=== PATIENT | female | born 2000 | race American Indian/Alaskan Native ===

== ENCOUNTER 2019-01-03 23:55 | Inpatient (IN) | payer BC, MEDICAID ==
[2019-01-04] MEDS ORDERED: XYLOCAINE 2% INFILTRATI ONE (03:46)
[2019-01-04] MEDS ORDERED: BRETHINE IVP PRN (03:46)
[2019-01-04] MEDS ORDERED: SUBLIMAZE IV PRN (03:46)
[2019-01-04] MEDS ORDERED: BRETHINE SUB-Q PRN (03:46)
[2019-01-04] MEDS ORDERED: MINERAL OIL PO PRN (03:46)
[2019-01-04] MEDS ORDERED: PITOCin/NS 20 UNIT/1000ML DRIP 20 UNITS/1,000 ML BAG IV SCH (04:00)
[2019-01-04] MEDS ORDERED: PITOCin/NS 30 UNIT/500ML 30 UNITS/500 ML BAG IV SCH (04:00)
[2019-01-04 04:22] LABS: Hemoglobin 11.8 gm/dl (10.1-14.3); Mean Corpuscular HGB Conc 34 % (30-34); Mean Corpuscular Volume 92 fl (79-97); Platelet Count 130 K/mm3 (140-440); Red Blood Count 3.81 M/mm3 (3.65-5.03); Red Cell Distribution Width 14.5 % (13.2-15.2)
[2019-01-04 04:44] LABS: Alanine Aminotransferase 12 units/L (7-56)
[2019-01-04 05:07] LABS: Uric Acid 3.6 mg/dL (3.5-7.6)
--- NOTE | 2019-01-04 07:03 | History and Physical Report ---
History of Present Illness Date of examination: 01/04/19 Date of admission: 01/04/19 04:59 Chief complaint: my water broke History of present illness: Pt presents with SROM @ 2300. Pt admitted for IOL. GBS negative. Fliud reported as clear and clear on admission. EDC Calculations By LMP: 01/13/2019 from LMP date: 04/08/2018 + 280 days LMP: 01/13/2019 EDC Confirmation: 01/13/2019 Gestational Age: 34 5/7 weeks Past History : 1 Term Births: 0 Premature Births: 0 Living Children: 0 Para: 0 Mult. Births: 0 Prev : 0 Prev. attempt? 0 Aborta: 0 Elect. Ab: 0 Spont. Ab: 0 Ectopics: 0 Risk Factors: Smoked Tobacco Use: Never smoker Smokeless Tobacco Use: Never Passive smoke exposure: no Drug use: no HIV high-risk behavior: low risk Alcohol use: no Past Medical History: Reviewed history from 12/06/2018 and no changes required: rh negative - rhogam 10/24/18 Past Surgical History: negative Past Medical History Anesthesia Complications: negative Anemia: negative Autoimmune Disorder: negative Bleeding Disorder: negative Blood Transfusions: negative Breast Disease: negative Diabetes: negative Heart Disease: negative Hypertension: negative Hepatitis/Liver Disease: negative Kidney Disease/UTI: negative Neurologic/Epilepsy/Migraines: negative Phlebitis/Varicosities: negative Psychiatric: negative Pulmonary Disease/Asthma: negative Thyroid Disease: negative Hospitalizations: negative Surgery (Non-wool hat finisher): negative Abnormal PAP: negative HERNESTO Exposure: negative Infertility: negative Uterine Anomaly: negative Uterine Surgery (not C/S): negative Other Gynecologic Problems: negative Social Hx: Single Employed no smoking Infection History Hx of STD: none HIV Risk Eval: low risk Hepatitis B Risk Eval: low risk Personal hx. of genital herpes: no Partner hx. of genital herpes: no Rash, Viral, or Febrile illness since last LMP? no Varicella/Chicken Pox Status: Immunized TB Risk: no Genetic History Congenital Heart Defect: Mom: no Dad: no Ange Disease: Mom: no Dad: no Thalassemia Mom: no Dad: no Neural Tube Defect Mom: no Dad: no Down's Syndrome Mom: no Dad: no Gaurav-Sachs Mom: no Dad: no Sickle Cell Disease/Trait Mom: no Dad: no Hemophilia Mom: no Dad: no Muscular Dystrophy Mom: no Dad: no Cystic Fibrosis Mom: no Dad: no Onset Chorea Mom: no Dad: no Mental Retardation Mom: no Dad: no Fragile X Mom: no Dad: no Other Genetic/Chromosomal Disorder Mom: no Dad: no Child w/other defect Mom: no Dad: no Enviromental Exposures Xray Exposure: no Medication, drug, or alcohol use since LMP: no Chemical/Other Exposure: no Exposure to Cat Liter: no Hx of Parvovirus (Fifth Disease): no Occupational Exposure to Children: none Active Medications (reviewed today): FLINTSTONE VITAMINS () Current Allergies: No known allergies Past History Past Medical History: no pertinent history Past Surgical History: no surgical history Social history: no significant social history, single - Obstetrical History Expected Date of Delivery: 01/13/19 Actual Gestation: 38 Week(s) 5 Day(s) : 1 Medications and Allergies Allergies Allergy/AdvReac Type Severity Reaction Status Date / Time No Known Allergies Allergy Verified 01/04/19 03:34 Active Meds: Active Medications Ephedrine Sulfate (Ephedrine Sulfate) 10 mg IV Q2M PRN PRN Reason: Hypotension Fentanyl (Sublimaze) 100 mcg IV Q2H PRN PRN Reason: Labor Pain Oxytocin/Sodium Chloride (Pitocin/Ns 20 Unit/1000ml Drip) 20 units in 1,000 mls @ 125 mls/hr IV DIRECT DENIS Oxytocin/Sodium Chloride (Pitocin/Ns 30 Unit/500ml) 30 units in 500 mls @ 2 mls/hr IV TITR DENIS; Protocol Lactated Ringer's (Lactated Ringers) 1,000 mls @ 125 mls/hr IV DIRECT DENIS Mineral Oil (Mineral Oil) 30 ml PO QHS PRN PRN Reason: Constipation Terbutaline Sulfate (Brethine) 0.25 mg SUB-Q ONCE PRN PRN Reason: Hyperstimulation/Hypertonicity Terbutaline Sulfate (Brethine) 0.25 mg IVP ONCE PRN PRN Reason: Hyperstimulation/Hypertonicity Review of Systems All systems: negative - Vital Signs Vital signs: Vital Signs Pulse BP 72 143/88 01/04/19 01:27 01/04/19 01:27 Temp Pulse Resp BP Pulse Ox 98.6 F 75 20 134/79 01/04/19 05:07 01/04/19 06:35 01/04/19 05:07 01/04/19 06:35 - Physical Exam Lungs: Positive: Normal air movement Abdomen: Positive: normal appearance, soft. Negative: distention, tenderness, guarding Genitourinary (Female): Positive: other (deferred as pt already examined by RN) Deep Tendon Reflex Grade: Normal +2 - Obstetrical FHR: category 1 Results Result Diagrams: 01/04/19 04:00 01/04/19 04:00 Abnormal lab results 01/04/19 01/04/19 Range/Units 04:00 04:00 Plt Count 130 L (140-440) K/mm3 Creatinine 0.6 L (0.7-1.2) mg/dL Lactate Dehydrogenase 344 H (91-180) units/L All other labs normal. Assessment and Plan - Patient Problems (1) 38 weeks gestation of Current Visit: Yes Status: Acute (2) SROM (spontaneous rupture of membranes) Current Visit: Yes Status: Acute Plan to address problem: -admit -IOL -anticipate -Serial IOL in the back drop of SROM and risk of infection, failed IOL and need for c/s also d/w pt and questions were addressed and answered. (3) Elevated blood pressure affecting in third trimester, antepartum Current Visit: Yes Status: Acute Plan to address problem: -PIH labs negative -cont to closely monitor -Gest HTN for now as UA is pending and not sure if pt has protein in urine or not.Will hold MgSO4 at this time.
[2019-01-04 07:15] LABS: Bacteria,Urine 1+ /HPF (Negative); Bilirubin,Urine NEG (Negative); Blood,Urine LG (Negative); Color,Urine Yellow (Yellow); Mucus,Urine 3+ /HPF; Urobilinogen,Urine < 2.0 mg/dL (<2.0)
--- NOTE | 2019-01-04 08:51 | Progress Note ---
Assessment and Plan 33 y.o. IUP at 27w3d admitted for 24 hour urine collection and c/o severe swelling and leg pain. Patient resting in bed, reports "feeling much better, the swelling has gone down since I got here". No edema noted to face or hands/upper extremeties. 2+ pitting edema to LEs bilaterally. Patient denies any other complaints at this time- no LEHMAN, visual disturbances, RUQ pain, vaginal bleeding, LOF, contractions, no chest pain or difficulty breathing. She reports that she occasionally has difficulty breathing when lying down. VSSAF. Reviewed POC with pt- Echo and LE doppler ordered. NST q shift as ordered- RN aware to perform. Will continue collection of 24 hour urine and monitor results of ordered tests as well as BPs. Pt instructed to notify RN of any changes in assessment, needs, or complaints. Subjective - Subjective Date of service: 01/04/19 Patient reports: movement normal, no new complaints, no loss of fluid, no vaginal bleeding, no contractions Objective - Vital Signs Vital Signs: Vital Signs - 12hr 01/04/19 01/04/19 01/04/19 01:27 01:58 02:28 Temperature Pulse Rate 72 77 81 Respiratory Rate Blood Pressure 143/88 135/87 126/79 01/04/19 01/04/19 01/04/19 03:27 03:28 05:07 Temperature 98.4 F 98.6 F Pulse Rate 93 H Respiratory 20 Rate Blood Pressure 138/91 01/04/19 01/04/19 01/04/19 06:04 06:35 07:05 Temperature Pulse Rate 72 75 71 Respiratory Rate Blood Pressure 140/82 134/79 129/90 01/04/19 01/04/19 07:34 08:39 Temperature Pulse Rate 81 71 Respiratory Rate Blood Pressure 127/84 130/65 - Exam Cardiovascular: Regular rate, Normal S1, Normal S2 Lungs: Clear to auscultation, Normal air movement Abdomen: Present: normal appearance, soft, normal bowel sounds. Absent: distention, tenderness Uterus: Present: normal Uterine Tone Measurement Phase: Resting (soft, no contractions palpated) Extremities: edema (2+ pitting edema bilateral LEs) Deep Tendon Reflex Grade: Normal +2 - Labs Labs: Abnormal Labs 01/04/19 01/04/19 01/04/19 04:00 04:00 Unknown Plt Count 130 L Creatinine 0.6 L Lactate Dehydrogenase 344 H Urine WBC (Auto) 18.0 H U Epithel Cells (Auto) 23.0 H Laboratory Results - last 24 hr 01/04/19 01/04/19 01/04/19 04:00 04:00 Unknown WBC 7.4 RBC 3.81 Hgb 11.8 Hct 35.0 MCV 92 MCH 31 MCHC 34 RDW 14.5 Plt Count 130 L Creatinine 0.6 L Estimated GFR > 60 Uric Acid 3.6 AST 30 ALT 12 Lactate Dehydrogenase 344 H Urine Color Yellow Urine Turbidity Cloudy Urine pH 7.0 Ur Specific [place] 1.010 Urine Protein 30 mg/dl Urine Glucose (UA) Neg Urine Ketones Neg Urine Blood Lg Urine Nitrite Neg Urine Bilirubin Neg Urine Urobilinogen < 2.0 Ur Leukocyte Esterase Tr Urine WBC (Auto) 18.0 H Urine RBC (Auto) 41.0 U Epithel Cells (Auto) 23.0 H Urine Bacteria (Auto) 1+ Urine Mucus 3+
--- NOTE | 2019-01-04 09:02 | Progress Note ---
Assessment and Plan 18 y/o IUP at 38w5d admitted for SROM at 2300, clear. Pt reports continued LOC, remains clear. She reports feeling irregular contractions, palpate mild. SVE 2/60/-2, IUPC placed without difficulty with patient's permission- risks and benefits reviewed prior to placement. [facility] plans for pitocin augmentation, will increase pitocin 4x4 q30 per protocol, RN aware. Patient desires epidural for pain management. Offered IV pain medications at this time, patient declines, states she may request dose "if my pain gets worse". DWP lab results and BPs, she denies any LEHMAN, visual disturbances, RUQ pain. PIH assessment WNL. Will hold magnesium at this time per Dr. Gallo while BPs within normal range and pt asymptomatic. Will continue to monitor BPs and labor progress. Anticipate . Subjective - Subjective Date of service: 01/04/19 Principal diagnosis: SROM at term Patient reports: loss of fluid (continued since SROM at 2300, remains clear), vaginal bleeding (small amount while wiping in bathroom), movement normal, contractions, no new complaints Objective - Vital Signs Vital Signs: Vital Signs - 12hr 01/04/19 01/04/19 01/04/19 01:27 01:58 02:28 Temperature Pulse Rate 72 77 81 Respiratory Rate Blood Pressure 143/88 135/87 126/79 Blood Pressure [Right] 01/04/19 01/04/19 01/04/19 03:27 03:28 05:07 Temperature 98.4 F 98.6 F Pulse Rate 93 H Respiratory 20 Rate Blood Pressure 138/91 Blood Pressure [Right] 01/04/19 01/04/19 01/04/19 06:04 06:35 07:05 Temperature Pulse Rate 72 75 71 Respiratory Rate Blood Pressure 140/82 134/79 129/90 Blood Pressure [Right] 01/04/19 01/04/19 07:34 08:39 Temperature 97.6 F Pulse Rate 81 71 Respiratory 20 Rate Blood Pressure 127/84 130/65 Blood Pressure 130/65 [Right] - Exam Breasts: normal Cardiovascular: Regular rate, Normal S1, Normal S2 Lungs: Clear to auscultation, Normal air movement Abdomen: Present: normal appearance, soft, normal bowel sounds. Absent: distention, tenderness Vulva: both: normal Uterus: Present: normal FHR: auscultation normal, category 1 Uterine Contraction Monitor Mode: Internal Cervical Dilatation: 2 Cervical Effacement Percentage: 60 station: -2 Uterine Contraction Pattern: Irregular Uterine Tone Measurement Phase: Contraction Uterine Contraction Intensity: Mild Extremities: normal Deep Tendon Reflex Grade: Normal +2 - Labs Labs: Abnormal Labs 01/04/19 01/04/19 01/04/19 04:00 04:00 Unknown Plt Count 130 L Creatinine 0.6 L Lactate Dehydrogenase 344 H Urine WBC (Auto) 18.0 H U Epithel Cells (Auto) 23.0 H Laboratory Results - last 24 hr 01/04/19 01/04/19 01/04/19 04:00 04:00 Unknown WBC 7.4 RBC 3.81 Hgb 11.8 Hct 35.0 MCV 92 MCH 31 MCHC 34 RDW 14.5 Plt Count 130 L Creatinine 0.6 L Estimated GFR > 60 Uric Acid 3.6 AST 30 ALT 12 Lactate Dehydrogenase 344 H Urine Color Yellow Urine Turbidity Cloudy Urine pH 7.0 Ur Specific [place] 1.010 Urine Protein 30 mg/dl Urine Glucose (UA) Neg Urine Ketones Neg Urine Blood Lg Urine Nitrite Neg Urine Bilirubin Neg Urine Urobilinogen < 2.0 Ur Leukocyte Esterase Tr Urine WBC (Auto) 18.0 H Urine RBC (Auto) 41.0 U Epithel Cells (Auto) 23.0 H Urine Bacteria (Auto) 1+ Urine Mucus 3+
[2019-01-04] MEDS: STADOL IV PRN ×2 (10:17→22:35)
[2019-01-04] MEDS: LACTATED RINGERS 1,000 ML IV SCH ×2 (12:53→14:03)
[2019-01-04] MEDS ORDERED: NARCAN 2 MG/2 ML IV PRN (14:05)
[2019-01-04] MEDS: fentaNYL-BUPIV 2 MCG/ML-0.125% 200 MCG/100 ML BAG EPIDURAL SCH (14:44)
--- NOTE | 2019-01-04 14:53 | Anesthesia Consultation ---
Anesthesia Consult and Med Hx Date of service: 01/04/19 - Airway Anesthetic Teeth Evaluation: Good ROM Head & Neck: Adequate Mental/Hyoid Distance: Adequate Mallampati Class: Class II Intubation Access Assessment: Probably Good - Pulmonary Exam CTA: Yes - Cardiac Exam Cardiac Exam: RRR - Pre-Operative Health Status ASA Pre-Surgery Classification: ASA2 Proposed Anesthetic Plan: Epidural - Pulmonary Hx Smoking: No Hx Asthma: No Hx Respiratory Symptoms: No SOB: No COPD: No Home Oxygen Therapy: No Hx Pneumonia: No Hx Sleep Apnea: No - Cardiovascular System Hx Hypertension: No Hx Coronary Artery Disease: No Hx Heart Attack/AMI: No Hx Angina: No Hx Percutaneous Transluminal Coronary Angioplasty (PTCA): No Hx Cardia Arrhythmia: No Hx Pacemaker: No Hx Internal Defibrillator: No Hx Valvular Heart Disease: No Hx Heart Murmur: No Hx Peripheral Vascular Disease: No - Central Nervous System Hx Neuromuscular Disorder: No Hx Seizures: No CVA: No Hx Back Pain: Yes Hx Psychiatric Problems: No - Gastrointestinal Hx Ulcer: No Hx Gastroesophageal Reflux Disease: Yes - Endocrine Hx Renal Disease: No Hx End Stage Renal Disease: No Hx Cirrhosis: No Hx Liver Disease: No Hx Insulin Dependent Diabetes: No Hx Non-Insulin Dependent Diabetes: No Hx Thyroid Disease: No Hx Hypothyroidism: No Hx Hyperthyroidism: No - Hematic Hx Anemia: No Hx Sickle Cell Disease: No - Other Systems Hx Alcohol Use: No Hx Substance Use: No Hx Cancer: No Hx Obesity: Yes (BMI 31.9)
--- NOTE | 2019-01-04 19:38 | Progress Note ---
Assessment and Plan Anticipate vaginal delivery, questions answered - Patient Problems (1) 38 weeks gestation of Current Visit: Yes Status: Acute (2) Elevated blood pressure affecting in third trimester, antepartum Current Visit: Yes Status: Acute (3) SROM (spontaneous rupture of membranes) Current Visit: Yes Status: Acute Subjective - Subjective Date of service: 01/04/19 Principal diagnosis: SROM at term Interval history: c/o pressure Patient reports: loss of fluid (continued since SROM at 2300, remains clear), vaginal bleeding (small amount while wiping in bathroom), movement normal, contractions, no new complaints Objective - Vital Signs Vital Signs: Vital Signs - 12hr 01/04/19 01/04/19 01/04/19 08:39 09:04 10:05 Temperature 97.6 F Pulse Rate 71 75 65 Respiratory 20 Rate Blood Pressure 130/65 121/67 127/69 Blood Pressure 130/65 [Right] O2 Sat by Pulse Oximetry 01/04/19 01/04/19 01/04/19 10:34 11:04 11:34 Temperature Pulse Rate 69 68 80 Respiratory Rate Blood Pressure 108/63 107/51 125/75 Blood Pressure [Right] O2 Sat by Pulse Oximetry 01/04/19 01/04/19 01/04/19 11:35 12:04 12:10 Temperature 97.6 F Pulse Rate 73 89 78 Respiratory Rate Blood Pressure 125/75 130/73 Blood Pressure [Right] O2 Sat by Pulse 100 100 Oximetry 01/04/19 01/04/19 01/04/19 12:15 12:20 12:25 Temperature Pulse Rate 69 87 90 Respiratory Rate Blood Pressure Blood Pressure [Right] O2 Sat by Pulse 100 99 99 Oximetry 01/04/19 01/04/19 01/04/19 12:30 12:35 12:40 Temperature Pulse Rate 77 82 80 Respiratory Rate Blood Pressure 132/76 Blood Pressure [Right] O2 Sat by Pulse 99 99 99 Oximetry 01/04/19 01/04/19 01/04/19 12:41 12:45 12:50 Temperature Pulse Rate 122 H 87 76 Respiratory Rate Blood Pressure Blood Pressure [Right] O2 Sat by Pulse 90 99 93 Oximetry 01/04/19 01/04/19 01/04/19 12:55 13:00 13:01 Temperature Pulse Rate 87 72 75 Respiratory Rate Blood Pressure Blood Pressure [Right] O2 Sat by Pulse 90 100 80 L Oximetry 01/04/19 01/04/19 01/04/19 13:04 13:05 13:10 Temperature Pulse Rate 79 78 95 H Respiratory Rate Blood Pressure 144/82 Blood Pressure [Right] O2 Sat by Pulse 99 53 L Oximetry 01/04/19 01/04/19 01/04/19 13:15 13:20 13:25 Temperature Pulse Rate 73 99 H 71 Respiratory Rate Blood Pressure Blood Pressure [Right] O2 Sat by Pulse 98 97 100 Oximetry 01/04/19 01/04/19 01/04/19 13:26 13:30 13:32 Temperature Pulse Rate 89 76 68 Respiratory Rate Blood Pressure Blood Pressure [Right] O2 Sat by Pulse 70 L 100 89 Oximetry 01/04/19 01/04/19 01/04/19 13:45 13:46 13:51 Temperature Pulse Rate 89 93 H 84 Respiratory Rate Blood Pressure Blood Pressure [Right] O2 Sat by Pulse 0 L 89 96 Oximetry 01/04/19 01/04/19 01/04/19 13:56 13:58 14:00 Temperature 97.0 F L Pulse Rate 85 88 84 Respiratory Rate Blood Pressure 141/70 143/76 Blood Pressure [Right] O2 Sat by Pulse 98 Oximetry 01/04/19 01/04/19 01/04/19 14:01 14:02 14:04 Temperature Pulse Rate 52 L 78 78 Respiratory Rate Blood Pressure 136/76 140/77 Blood Pressure [Right] O2 Sat by Pulse 81 L Oximetry 01/04/19 01/04/19 01/04/19 14:06 14:07 14:08 Temperature Pulse Rate 96 H 89 93 H Respiratory Rate Blood Pressure 140/77 145/77 Blood Pressure [Right] O2 Sat by Pulse 91 Oximetry 01/04/19 01/04/19 01/04/19 14:10 14:12 14:17 Temperature Pulse Rate 90 76 78 Respiratory Rate Blood Pressure 151/88 158/72 156/69 Blood Pressure [Right] O2 Sat by Pulse 100 100 Oximetry 01/04/19 01/04/19 01/04/19 14:18 14:20 14:22 Temperature Pulse Rate 85 82 70 Respiratory Rate Blood Pressure 138/73 143/78 143/80 Blood Pressure [Right] O2 Sat by Pulse 100 Oximetry 01/04/19 01/04/19 01/04/19 14:24 14:26 14:27 Temperature Pulse Rate 65 70 69 Respiratory Rate Blood Pressure 145/79 148/82 Blood Pressure [Right] O2 Sat by Pulse 100 Oximetry 01/04/19 01/04/19 01/04/19 14:28 14:30 14:32 Temperature Pulse Rate 70 67 71 Respiratory Rate Blood Pressure 153/80 143/71 142/70 Blood Pressure [Right] O2 Sat by Pulse 100 Oximetry 01/04/19 01/04/19 01/04/19 14:35 14:37 14:38 Temperature Pulse Rate 87 86 76 Respiratory Rate Blood Pressure 166/116 121/70 124/62 Blood Pressure [Right] O2 Sat by Pulse 100 Oximetry 01/04/19 01/04/19 01/04/19 14:42 14:47 14:52 Temperature Pulse Rate 73 70 73 Respiratory Rate Blood Pressure Blood Pressure [Right] O2 Sat by Pulse 100 100 100 Oximetry 01/04/19 01/04/19 01/04/19 14:53 14:57 15:02 Temperature Pulse Rate 82 71 85 Respiratory Rate Blood Pressure 145/72 Blood Pressure [Right] O2 Sat by Pulse 100 100 Oximetry 01/04/19 01/04/19 01/04/19 15:07 15:08 15:12 Temperature Pulse Rate 66 75 65 Respiratory Rate Blood Pressure 150/77 Blood Pressure [Right] O2 Sat by Pulse 100 100 Oximetry 01/04/19 01/04/19 01/04/19 15:17 15:22 15:23 Temperature Pulse Rate 78 65 73 Respiratory Rate Blood Pressure 137/71 Blood Pressure [Right] O2 Sat by Pulse 100 100 Oximetry 01/04/19 01/04/19 01/04/19 15:27 15:32 15:37 Temperature Pulse Rate 71 78 74 Respiratory Rate Blood Pressure Blood Pressure [Right] O2 Sat by Pulse 100 100 100 Oximetry 01/04/19 01/04/19 01/04/19 15:39 15:42 15:47 Temperature Pulse Rate 68 66 68 Respiratory Rate Blood Pressure 136/69 Blood Pressure [Right] O2 Sat by Pulse 100 100 Oximetry 01/04/19 01/04/19 01/04/19 15:52 15:53 15:57 Temperature Pulse Rate 72 82 102 H Respiratory Rate Blood Pressure 146/71 Blood Pressure [Right] O2 Sat by Pulse 100 100 Oximetry 01/04/19 01/04/19 01/04/19 16:02 16:07 16:09 Temperature Pulse Rate 97 H 88 75 Respiratory Rate Blood Pressure 127/68 Blood Pressure [Right] O2 Sat by Pulse 100 100 Oximetry 01/04/19 01/04/19 01/04/19 16:10 16:11 16:12 Temperature 97.6 F Pulse Rate 83 86 92 H Respiratory 16 Rate Blood Pressure Blood Pressure 127/68 [Right] O2 Sat by Pulse 99 86 100 Oximetry 01/04/19 01/04/19 01/04/19 16:17 16:22 16:24 Temperature Pulse Rate 82 93 H 84 Respiratory Rate Blood Pressure 130/78 Blood Pressure [Right] O2 Sat by Pulse 100 100 Oximetry 01/04/19 01/04/19 01/04/19 16:27 16:32 16:37 Temperature Pulse Rate 90 85 82 Respiratory Rate Blood Pressure Blood Pressure [Right] O2 Sat by Pulse 100 99 100 Oximetry 01/04/19 01/04/19 01/04/19 16:40 16:42 16:47 Temperature Pulse Rate 73 85 77 Respiratory Rate Blood Pressure 113/57 Blood Pressure [Right] O2 Sat by Pulse 99 100 Oximetry 01/04/19 01/04/19 01/04/19 16:52 16:53 16:57 Temperature Pulse Rate 72 96 H 89 Respiratory Rate Blood Pressure 128/72 Blood Pressure [Right] O2 Sat by Pulse 100 99 Oximetry 01/04/19 01/04/19 01/04/19 17:02 17:07 17:09 Temperature Pulse Rate 77 72 74 Respiratory Rate Blood Pressure 119/57 Blood Pressure [Right] O2 Sat by Pulse 100 100 Oximetry 01/04/19 01/04/19 01/04/19 17:12 17:17 17:22 Temperature Pulse Rate 95 H 75 75 Respiratory Rate Blood Pressure Blood Pressure [Right] O2 Sat by Pulse 98 100 99 Oximetry 01/04/19 01/04/19 01/04/19 17:23 17:27 17:32 Temperature Pulse Rate 78 75 77 Respiratory Rate Blood Pressure 117/56 Blood Pressure [Right] O2 Sat by Pulse 99 100 Oximetry 01/04/19 01/04/19 01/04/19 17:37 17:39 17:42 Temperature Pulse Rate 88 82 77 Respiratory Rate Blood Pressure 116/69 Blood Pressure [Right] O2 Sat by Pulse 99 99 Oximetry 01/04/19 01/04/19 01/04/19 17:47 17:52 17:54 Temperature Pulse Rate 72 77 75 Respiratory Rate Blood Pressure 106/59 Blood Pressure [Right] O2 Sat by Pulse 100 100 Oximetry 01/04/19 01/04/19 01/04/19 17:57 18:02 18:03 Temperature 97.8 F Pulse Rate 83 122 H Respiratory Rate Blood Pressure Blood Pressure [Right] O2 Sat by Pulse 100 99 Oximetry 01/04/19 01/04/19 01/04/19 18:07 18:08 18:12 Temperature Pulse Rate 82 104 H 82 Respiratory Rate Blood Pressure 123/78 Blood Pressure [Right] O2 Sat by Pulse 99 100 Oximetry 01/04/19 01/04/19 01/04/19 18:17 18:22 18:23 Temperature Pulse Rate 81 81 78 Respiratory Rate Blood Pressure 120/60 Blood Pressure [Right] O2 Sat by Pulse 100 100 Oximetry 01/04/19 01/04/19 01/04/19 18:27 18:32 18:37 Temperature Pulse Rate 93 H 91 H 99 H Respiratory Rate Blood Pressure Blood Pressure [Right] O2 Sat by Pulse 99 100 99 Oximetry 01/04/19 01/04/19 01/04/19 18:39 18:42 18:44 Temperature Pulse Rate 97 H 109 H 125 H Respiratory Rate Blood Pressure 140/99 128/100 Blood Pressure [Right] O2 Sat by Pulse 98 Oximetry 01/04/19 01/04/19 01/04/19 18:47 18:52 18:54 Temperature Pulse Rate 97 H 102 H 106 H Respiratory Rate Blood Pressure 138/84 Blood Pressure [Right] O2 Sat by Pulse 99 99 Oximetry 01/04/19 01/04/19 01/04/19 18:57 19:02 19:07 Temperature Pulse Rate 138 H 124 H 147 H Respiratory Rate Blood Pressure Blood Pressure [Right] O2 Sat by Pulse 100 100 99 Oximetry 01/04/19 01/04/19 01/04/19 19:10 19:12 19:17 Temperature Pulse Rate 142 H 134 H 138 H Respiratory Rate Blood Pressure 176/100 Blood Pressure [Right] O2 Sat by Pulse 100 99 Oximetry 01/04/19 01/04/19 01/04/19 19:22 19:23 19:27 Temperature Pulse Rate 123 H 122 H 120 H Respiratory Rate Blood Pressure 175/107 Blood Pressure [Right] O2 Sat by Pulse 100 100 Oximetry 01/04/19 19:32 Temperature Pulse Rate 126 H Respiratory Rate Blood Pressure Blood Pressure [Right] O2 Sat by Pulse 100 Oximetry - Exam Cervical Dilatation: 9 Cervical Effacement Percentage: 90 station: 0 per RN - Labs Labs: Abnormal Labs 01/04/19 01/04/19 01/04/19 04:00 04:00 Unknown Plt Count 130 L Creatinine 0.6 L Lactate Dehydrogenase 344 H Urine WBC (Auto) 18.0 H U Epithel Cells (Auto) 23.0 H Laboratory Results - last 24 hr 01/04/19 01/04/19 01/04/19 04:00 04:00 04:00 WBC 7.4 RBC 3.81 Hgb 11.8 Hct 35.0 MCV 92 MCH 31 MCHC 34 RDW 14.5 Plt Count 130 L Creatinine 0.6 L Estimated GFR > 60 Uric Acid 3.6 AST 30 ALT 12 Lactate Dehydrogenase 344 H Urine Color Urine Turbidity Urine pH Ur Specific [place] Urine Protein Urine Glucose (UA) Urine Ketones Urine Blood Urine Nitrite Urine Bilirubin Urine Urobilinogen Ur Leukocyte Esterase Urine WBC (Auto) Urine RBC (Auto) U Epithel Cells (Auto) Urine Bacteria (Auto) Urine Mucus RPR Nonreactive Blood Type Antibody Screen STEFANI Antibody Screen 01/04/19 01/04/19 04:00 Unknown WBC RBC Hgb Hct MCV MCH MCHC RDW Plt Count Creatinine Estimated GFR Uric Acid AST ALT Lactate Dehydrogenase Urine Color Yellow Urine Turbidity Cloudy Urine pH 7.0 Ur Specific [place] 1.010 Urine Protein 30 mg/dl Urine Glucose (UA) Neg Urine Ketones Neg Urine Blood Lg Urine Nitrite Neg Urine Bilirubin Neg Urine Urobilinogen < 2.0 Ur Leukocyte Esterase Tr Urine WBC (Auto) 18.0 H Urine RBC (Auto) 41.0 U Epithel Cells (Auto) 23.0 H Urine Bacteria (Auto) 1+ Urine Mucus 3+ RPR Blood Type O NEGATIVE Antibody Screen TNR STEFANI Antibody Screen Negative
[2019-01-04] MEDS ORDERED: STADOL IV PRN (23:01)
[2019-01-05] MEDS ORDERED: PEPCID IV ONE ×3 (00:17→00:22)
[2019-01-05] MEDS ORDERED: REGLAN IV ONE (00:17)
[2019-01-05] MEDS ORDERED: BICITRA PO ONE (00:17)
--- NOTE | 2019-01-05 00:17 | Progress Note ---
Assessment and Plan With multiple positon changes patient pushed with excellent effort and descent to +1-+2 for 2 hours. I was called to assist a MD in the OR with surgery for ~45 minutes, patient was allowed rest.During that time again her position was change to attempt rotation of head. With return to pushing, caput now at 2+however head at 1+ with minimun descent. Suspect OP with maternal exhaustion. Concern for infection and deterioration of status and injury explained. Option discussed: continue pushing vs c/s. Risks explained. Questions encouraged and answered. She voiced understanding and desires to proceed with c/s. Consent reviewed and signed. - Patient Problems (1) 38 weeks gestation of Current Visit: Yes Status: Acute (2) Elevated blood pressure affecting in third trimester, antepartum Current Visit: Yes Status: Acute (3) SROM (spontaneous rupture of membranes) Current Visit: Yes Status: Acute Subjective - Subjective Date of service: 01/05/19 Principal diagnosis: SROM at term Interval history: c/o pressure Patient reports: loss of fluid (continued since SROM at 2300, remains clear), vaginal bleeding (small amount while wiping in bathroom), movement normal, contractions, no new complaints Objective - Vital Signs Vital Signs: Vital Signs - 12hr 01/04/19 01/04/19 01/04/19 12:10 12:15 12:20 Temperature Pulse Rate 78 69 87 Respiratory Rate Blood Pressure Blood Pressure [Right] O2 Sat by Pulse 100 100 99 Oximetry 01/04/19 01/04/19 01/04/19 12:25 12:30 12:35 Temperature Pulse Rate 90 77 82 Respiratory Rate Blood Pressure 132/76 Blood Pressure [Right] O2 Sat by Pulse 99 99 99 Oximetry 01/04/19 01/04/19 01/04/19 12:40 12:41 12:45 Temperature Pulse Rate 80 122 H 87 Respiratory Rate Blood Pressure Blood Pressure [Right] O2 Sat by Pulse 99 90 99 Oximetry 01/04/19 01/04/19 01/04/19 12:50 12:55 13:00 Temperature Pulse Rate 76 87 72 Respiratory Rate Blood Pressure Blood Pressure [Right] O2 Sat by Pulse 93 90 100 Oximetry 01/04/19 01/04/19 01/04/19 13:01 13:04 13:05 Temperature Pulse Rate 75 79 78 Respiratory Rate Blood Pressure 144/82 Blood Pressure [Right] O2 Sat by Pulse 80 L 99 Oximetry 01/04/19 01/04/19 01/04/19 13:10 13:15 13:20 Temperature Pulse Rate 95 H 73 99 H Respiratory Rate Blood Pressure Blood Pressure [Right] O2 Sat by Pulse 53 L 98 97 Oximetry 01/04/19 01/04/19 01/04/19 13:25 13:26 13:30 Temperature Pulse Rate 71 89 76 Respiratory Rate Blood Pressure Blood Pressure [Right] O2 Sat by Pulse 100 70 L 100 Oximetry 01/04/19 01/04/19 01/04/19 13:32 13:45 13:46 Temperature Pulse Rate 68 89 93 H Respiratory Rate Blood Pressure Blood Pressure [Right] O2 Sat by Pulse 89 0 L 89 Oximetry 01/04/19 01/04/19 01/04/19 13:51 13:56 13:58 Temperature Pulse Rate 84 85 88 Respiratory Rate Blood Pressure 141/70 Blood Pressure [Right] O2 Sat by Pulse 96 98 Oximetry 01/04/19 01/04/19 01/04/19 14:00 14:01 14:02 Temperature 97.0 F L Pulse Rate 84 52 L 78 Respiratory Rate Blood Pressure 143/76 136/76 Blood Pressure [Right] O2 Sat by Pulse 81 L Oximetry 01/04/19 01/04/19 01/04/19 14:04 14:06 14:07 Temperature Pulse Rate 78 96 H 89 Respiratory Rate Blood Pressure 140/77 140/77 Blood Pressure [Right] O2 Sat by Pulse 91 Oximetry 01/04/19 01/04/19 01/04/19 14:08 14:10 14:12 Temperature Pulse Rate 93 H 90 76 Respiratory Rate Blood Pressure 145/77 151/88 158/72 Blood Pressure [Right] O2 Sat by Pulse 100 Oximetry 01/04/19 01/04/19 01/04/19 14:17 14:18 14:20 Temperature Pulse Rate 78 85 82 Respiratory Rate Blood Pressure 156/69 138/73 143/78 Blood Pressure [Right] O2 Sat by Pulse 100 Oximetry 01/04/19 01/04/19 01/04/19 14:22 14:24 14:26 Temperature Pulse Rate 70 65 70 Respiratory Rate Blood Pressure 143/80 145/79 148/82 Blood Pressure [Right] O2 Sat by Pulse 100 Oximetry 01/04/19 01/04/19 01/04/19 14:27 14:28 14:30 Temperature Pulse Rate 69 70 67 Respiratory Rate Blood Pressure 153/80 143/71 Blood Pressure [Right] O2 Sat by Pulse 100 Oximetry 01/04/19 01/04/19 01/04/19 14:32 14:35 14:37 Temperature Pulse Rate 71 87 86 Respiratory Rate Blood Pressure 142/70 166/116 121/70 Blood Pressure [Right] O2 Sat by Pulse 100 100 Oximetry 01/04/19 01/04/19 01/04/19 14:38 14:42 14:47 Temperature Pulse Rate 76 73 70 Respiratory Rate Blood Pressure 124/62 Blood Pressure [Right] O2 Sat by Pulse 100 100 Oximetry 01/04/19 01/04/19 01/04/19 14:52 14:53 14:57 Temperature Pulse Rate 73 82 71 Respiratory Rate Blood Pressure 145/72 Blood Pressure [Right] O2 Sat by Pulse 100 100 Oximetry 01/04/19 01/04/19 01/04/19 15:02 15:07 15:08 Temperature Pulse Rate 85 66 75 Respiratory Rate Blood Pressure 150/77 Blood Pressure [Right] O2 Sat by Pulse 100 100 Oximetry 01/04/19 01/04/19 01/04/19 15:12 15:17 15:22 Temperature Pulse Rate 65 78 65 Respiratory Rate Blood Pressure Blood Pressure [Right] O2 Sat by Pulse 100 100 100 Oximetry 01/04/19 01/04/19 01/04/19 15:23 15:27 15:32 Temperature Pulse Rate 73 71 78 Respiratory Rate Blood Pressure 137/71 Blood Pressure [Right] O2 Sat by Pulse 100 100 Oximetry 01/04/19 01/04/19 01/04/19 15:37 15:39 15:42 Temperature Pulse Rate 74 68 66 Respiratory Rate Blood Pressure 136/69 Blood Pressure [Right] O2 Sat by Pulse 100 100 Oximetry 01/04/19 01/04/19 01/04/19 15:47 15:52 15:53 Temperature Pulse Rate 68 72 82 Respiratory Rate Blood Pressure 146/71 Blood Pressure [Right] O2 Sat by Pulse 100 100 Oximetry 01/04/19 01/04/19 01/04/19 15:57 16:02 16:07 Temperature Pulse Rate 102 H 97 H 88 Respiratory Rate Blood Pressure Blood Pressure [Right] O2 Sat by Pulse 100 100 100 Oximetry 01/04/19 01/04/19 01/04/19 16:09 16:10 16:11 Temperature 97.6 F Pulse Rate 75 83 86 Respiratory 16 Rate Blood Pressure 127/68 Blood Pressure 127/68 [Right] O2 Sat by Pulse 99 86 Oximetry 01/04/19 01/04/19 01/04/19 16:12 16:17 16:22 Temperature Pulse Rate 92 H 82 93 H Respiratory Rate Blood Pressure Blood Pressure [Right] O2 Sat by Pulse 100 100 100 Oximetry 01/04/19 01/04/19 01/04/19 16:24 16:27 16:32 Temperature Pulse Rate 84 90 85 Respiratory Rate Blood Pressure 130/78 Blood Pressure [Right] O2 Sat by Pulse 100 99 Oximetry 01/04/19 01/04/19 01/04/19 16:37 16:40 16:42 Temperature Pulse Rate 82 73 85 Respiratory Rate Blood Pressure 113/57 Blood Pressure [Right] O2 Sat by Pulse 100 99 Oximetry 01/04/19 01/04/19 01/04/19 16:47 16:52 16:53 Temperature Pulse Rate 77 72 96 H Respiratory Rate Blood Pressure 128/72 Blood Pressure [Right] O2 Sat by Pulse 100 100 Oximetry 01/04/19 01/04/19 01/04/19 16:57 17:02 17:07 Temperature Pulse Rate 89 77 72 Respiratory Rate Blood Pressure Blood Pressure [Right] O2 Sat by Pulse 99 100 100 Oximetry 01/04/19 01/04/19 01/04/19 17:09 17:12 17:17 Temperature Pulse Rate 74 95 H 75 Respiratory Rate Blood Pressure 119/57 Blood Pressure [Right] O2 Sat by Pulse 98 100 Oximetry 01/04/19 01/04/19 01/04/19 17:22 17:23 17:27 Temperature Pulse Rate 75 78 75 Respiratory Rate Blood Pressure 117/56 Blood Pressure [Right] O2 Sat by Pulse 99 99 Oximetry 01/04/19 01/04/19 01/04/19 17:32 17:37 17:39 Temperature Pulse Rate 77 88 82 Respiratory Rate Blood Pressure 116/69 Blood Pressure [Right] O2 Sat by Pulse 100 99 Oximetry 01/04/19 01/04/19 01/04/19 17:42 17:47 17:52 Temperature Pulse Rate 77 72 77 Respiratory Rate Blood Pressure Blood Pressure [Right] O2 Sat by Pulse 99 100 100 Oximetry 01/04/19 01/04/19 01/04/19 17:54 17:57 18:02 Temperature Pulse Rate 75 83 122 H Respiratory Rate Blood Pressure 106/59 Blood Pressure [Right] O2 Sat by Pulse 100 99 Oximetry 01/04/19 01/04/19 01/04/19 18:03 18:07 18:08 Temperature 97.8 F Pulse Rate 82 104 H Respiratory Rate Blood Pressure 123/78 Blood Pressure [Right] O2 Sat by Pulse 99 Oximetry 01/04/19 01/04/19 01/04/19 18:12 18:17 18:22 Temperature Pulse Rate 82 81 81 Respiratory Rate Blood Pressure Blood Pressure [Right] O2 Sat by Pulse 100 100 100 Oximetry 01/04/19 01/04/19 01/04/19 18:23 18:27 18:32 Temperature Pulse Rate 78 93 H 91 H Respiratory Rate Blood Pressure 120/60 Blood Pressure [Right] O2 Sat by Pulse 99 100 Oximetry 01/04/19 01/04/19 01/04/19 18:37 18:39 18:42 Temperature Pulse Rate 99 H 97 H 109 H Respiratory Rate Blood Pressure 140/99 Blood Pressure [Right] O2 Sat by Pulse 99 98 Oximetry 01/04/19 01/04/19 01/04/19 18:44 18:47 18:52 Temperature Pulse Rate 125 H 97 H 102 H Respiratory Rate Blood Pressure 128/100 Blood Pressure [Right] O2 Sat by Pulse 99 99 Oximetry 01/04/19 01/04/19 01/04/19 18:54 18:57 19:02 Temperature Pulse Rate 106 H 138 H 124 H Respiratory Rate Blood Pressure 138/84 Blood Pressure [Right] O2 Sat by Pulse 100 100 Oximetry 01/04/19 01/04/19 01/04/19 19:07 19:10 19:12 Temperature Pulse Rate 147 H 142 H 134 H Respiratory Rate Blood Pressure 176/100 Blood Pressure [Right] O2 Sat by Pulse 99 100 Oximetry 01/04/19 01/04/19 01/04/19 19:17 19:22 19:23 Temperature Pulse Rate 138 H 123 H 122 H Respiratory Rate Blood Pressure 175/107 Blood Pressure [Right] O2 Sat by Pulse 99 100 Oximetry 01/04/19 01/04/19 01/04/19 19:27 19:32 19:37 Temperature Pulse Rate 120 H 126 H 104 H Respiratory Rate Blood Pressure Blood Pressure [Right] O2 Sat by Pulse 100 100 100 Oximetry 01/04/19 01/04/19 01/04/19 19:39 19:42 19:47 Temperature Pulse Rate 104 H 108 H 111 H Respiratory Rate Blood Pressure 137/75 Blood Pressure [Right] O2 Sat by Pulse 100 100 Oximetry 01/04/19 01/04/19 01/04/19 19:52 19:54 19:57 Temperature Pulse Rate 111 H 112 H 113 H Respiratory Rate Blood Pressure 143/79 Blood Pressure [Right] O2 Sat by Pulse 100 100 Oximetry 01/04/19 01/04/19 01/04/19 20:02 20:07 20:09 Temperature Pulse Rate 125 H 120 H 114 H Respiratory Rate Blood Pressure 162/93 Blood Pressure [Right] O2 Sat by Pulse 100 100 Oximetry 01/04/19 01/04/19 01/04/19 20:12 20:15 20:18 Temperature Pulse Rate 132 H 123 H Respiratory Rate Blood Pressure Blood Pressure [Right] O2 Sat by Pulse 100 82 L 100 Oximetry 01/04/19 01/04/19 01/04/19 20:23 20:28 20:33 Temperature Pulse Rate 117 H 109 H 114 H Respiratory Rate Blood Pressure 137/87 Blood Pressure [Right] O2 Sat by Pulse 100 94 91 Oximetry 01/04/19 01/04/19 01/04/19 20:38 20:43 20:48 Temperature Pulse Rate 93 H 97 H 102 H Respiratory Rate Blood Pressure 141/77 Blood Pressure [Right] O2 Sat by Pulse 100 98 98 Oximetry 01/04/19 01/04/19 01/04/19 20:53 20:54 20:58 Temperature Pulse Rate 112 H 100 H 122 H Respiratory Rate Blood Pressure 146/77 Blood Pressure [Right] O2 Sat by Pulse 99 99 Oximetry 01/04/19 01/04/19 01/04/19 21:03 21:08 21:10 Temperature Pulse Rate 77 112 H 93 H Respiratory Rate Blood Pressure 160/99 Blood Pressure [Right] O2 Sat by Pulse 66 L 87 Oximetry 01/04/19 01/04/19 01/04/19 21:11 21:13 21:18 Temperature Pulse Rate 111 H 100 H 99 H Respiratory Rate Blood Pressure Blood Pressure [Right] O2 Sat by Pulse 89 96 100 Oximetry 01/04/19 01/04/19 01/04/19 21:23 21:24 21:27 Temperature Pulse Rate 110 H 92 H 110 H Respiratory Rate Blood Pressure 171/87 Blood Pressure [Right] O2 Sat by Pulse 100 90 Oximetry 01/04/19 01/04/19 01/04/19 21:28 21:33 21:38 Temperature Pulse Rate 104 H 93 H 106 H Respiratory Rate Blood Pressure Blood Pressure [Right] O2 Sat by Pulse 97 100 98 Oximetry 01/04/19 01/04/19 01/04/19 21:39 21:43 21:46 Temperature Pulse Rate 52 L 70 99 H Respiratory Rate Blood Pressure 148/82 Blood Pressure [Right] O2 Sat by Pulse 52 L 81 L 88 Oximetry 01/04/19 01/04/19 01/04/19 21:48 21:52 21:53 Temperature Pulse Rate 93 H 84 66 Respiratory Rate Blood Pressure Blood Pressure [Right] O2 Sat by Pulse 100 72 L 74 L Oximetry 01/04/19 01/04/19 01/04/19 21:54 21:58 22:00 Temperature Pulse Rate 90 97 H Respiratory Rate Blood Pressure 145/76 Blood Pressure [Right] O2 Sat by Pulse 100 87 Oximetry 01/04/19 01/04/19 01/04/19 22:03 22:06 22:08 Temperature Pulse Rate 95 H 121 H 106 H Respiratory Rate Blood Pressure Blood Pressure [Right] O2 Sat by Pulse 100 79 L 100 Oximetry 01/04/19 01/04/19 01/04/19 22:09 22:13 22:18 Temperature Pulse Rate 83 81 98 H Respiratory Rate Blood Pressure 146/82 Blood Pressure [Right] O2 Sat by Pulse 93 83 L Oximetry 01/04/19 01/04/19 01/04/19 22:23 22:25 22:28 Temperature Pulse Rate 77 127 H 86 Respiratory Rate Blood Pressure 154/83 Blood Pressure [Right] O2 Sat by Pulse 100 65 L 100 Oximetry 01/04/19 01/04/19 01/04/19 22:31 22:33 22:37 Temperature Pulse Rate 88 105 H 93 H Respiratory Rate Blood Pressure Blood Pressure [Right] O2 Sat by Pulse 91 98 87 Oximetry 01/04/19 01/04/19 01/04/19 22:38 22:42 22:43 Temperature Pulse Rate 90 82 83 Respiratory Rate Blood Pressure 153/73 Blood Pressure [Right] O2 Sat by Pulse 100 77 L 96 Oximetry 01/04/19 01/04/19 01/04/19 22:48 22:53 22:58 Temperature Pulse Rate 109 H 91 H 94 H Respiratory Rate Blood Pressure 145/79 Blood Pressure [Right] O2 Sat by Pulse 89 95 100 Oximetry 01/04/19 01/04/19 01/04/19 23:00 23:03 23:06 Temperature Pulse Rate 94 H 102 H 101 H Respiratory Rate Blood Pressure Blood Pressure [Right] O2 Sat by Pulse 83 L 92 0 L Oximetry 01/04/19 01/04/19 01/04/19 23:08 23:12 23:13 Temperature Pulse Rate 94 H 118 H 101 H Respiratory Rate Blood Pressure 137/78 Blood Pressure [Right] O2 Sat by Pulse 95 74 L 100 Oximetry 01/04/19 01/04/19 01/04/19 23:18 23:19 23:23 Temperature Pulse Rate 95 H 89 90 Respiratory Rate Blood Pressure 136/72 Blood Pressure [Right] O2 Sat by Pulse 100 84 100 Oximetry 01/04/19 01/04/19 01/04/19 23:25 23:28 23:31 Temperature Pulse Rate 117 H 101 H 112 H Respiratory Rate Blood Pressure Blood Pressure [Right] O2 Sat by Pulse 80 L 98 62 L Oximetry 01/04/19 01/04/19 01/04/19 23:33 23:37 23:38 Temperature Pulse Rate 105 H 101 H 96 H Respiratory Rate Blood Pressure 134/72 Blood Pressure [Right] O2 Sat by Pulse 100 0 L 100 Oximetry 01/04/19 01/04/19 01/04/19 23:43 23:45 23:48 Temperature Pulse Rate 113 H 55 L 100 H Respiratory Rate Blood Pressure Blood Pressure [Right] O2 Sat by Pulse 100 55 L 99 Oximetry - Labs Labs: Abnormal Labs 01/04/19 01/04/19 01/04/19 04:00 04:00 Unknown Plt Count 130 L Creatinine 0.6 L Lactate Dehydrogenase 344 H Urine WBC (Auto) 18.0 H U Epithel Cells (Auto) 23.0 H Laboratory Results - last 24 hr 01/04/19 01/04/19 01/04/19 04:00 04:00 04:00 WBC 7.4 RBC 3.81 Hgb 11.8 Hct 35.0 MCV 92 MCH 31 MCHC 34 RDW 14.5 Plt Count 130 L Creatinine 0.6 L Estimated GFR > 60 Uric Acid 3.6 AST 30 ALT 12 Lactate Dehydrogenase 344 H Urine Color Urine Turbidity Urine pH Ur Specific [place] Urine Protein Urine Glucose (UA) Urine Ketones Urine Blood Urine Nitrite Urine Bilirubin Urine Urobilinogen Ur Leukocyte Esterase Urine WBC (Auto) Urine RBC (Auto) U Epithel Cells (Auto) Urine Bacteria (Auto) Urine Mucus RPR Nonreactive Blood Type Antibody Screen STEFANI Antibody Screen 01/04/19 01/04/19 04:00 Unknown WBC RBC Hgb Hct MCV MCH MCHC RDW Plt Count Creatinine Estimated GFR Uric Acid AST ALT Lactate Dehydrogenase Urine Color Yellow Urine Turbidity Cloudy Urine pH 7.0 Ur Specific [place] 1.010 Urine Protein 30 mg/dl Urine Glucose (UA) Neg Urine Ketones Neg Urine Blood Lg Urine Nitrite Neg Urine Bilirubin Neg Urine Urobilinogen < 2.0 Ur Leukocyte Esterase Tr Urine WBC (Auto) 18.0 H Urine RBC (Auto) 41.0 U Epithel Cells (Auto) 23.0 H Urine Bacteria (Auto) 1+ Urine Mucus 3+ RPR Blood Type O NEGATIVE Antibody Screen TNR STEFANI Antibody Screen Negative
[2019-01-05] MEDS ORDERED: BICITRA ONE (00:20)
[2019-01-05] MEDS ORDERED: CYTOTEC ONE (00:21)
[2019-01-05] MEDS ORDERED: REGLAN ONE (00:21)
[2019-01-05] MEDS ORDERED: METHERGINE IM ONE (00:22)
[2019-01-05] MEDS ORDERED: ANCEF ONE (00:23)
[2019-01-05] MEDS ORDERED: SUBLIMAZE ONE (00:28)
[2019-01-05] MEDS ORDERED: XYLOCAINE MPF 2% ONE ×2 (00:28→01:31)
[2019-01-05] MEDS ORDERED: ceFAZolin 3 GM in NACL 0.9% 100 ML IV NR (00:30)
--- NOTE | 2019-01-05 00:47 | Anesthesia Day of Surgery ---
Anesthesia Day of Surgery - Day of Surgery Patient Examined: Yes Patient H&P Reviewed: Yes Patient is NPO: Yes Beta Blockers: No Cardiac Clearance: No Pulmonary Clearance: No Toni's Test: N/A
[2019-01-05] MEDS ORDERED: LACTATED RINGERS 1,000 ML IV SCH (01:00)
[2019-01-05] MEDS: fentaNYL-BUPIV 2 MCG/ML-0.125% 200 MCG/100 ML BAG EPIDURAL SCH (01:00)
[2019-01-05] MEDS ORDERED: MARCAINE 0.5% INFILTRATI ONE (01:00)
[2019-01-05] MEDS ORDERED: PITOCin/NS 20 UNIT/1000ML DRIP 20 UNITS/1,000 ML BAG IV SCH ×2 (01:00→04:45)
[2019-01-05] MEDS ORDERED: PHENERGAN PO PRN (02:43)
[2019-01-05] MEDS ORDERED: DILAUDID IV PRN ×2 (02:43)
[2019-01-05] MEDS ORDERED: PHENERGAN PR PRN ×2 (02:43→04:45)
[2019-01-05] MEDS ORDERED: ZOFRAN IV PRN ×2 (02:43→04:45)
[2019-01-05] MEDS ORDERED: NARCAN 0.4 MG/1 ML IV PRN ×2 (02:43→04:45)
--- NOTE | 2019-01-05 02:49 | Post Anesthesia Evaluation ---
- Post Anesthesia Evaluation Patient Participated: Yes Airway Patent: Yes Stable Respiratory Function: Yes Nausea/Vomiting: No Temp > 96.8F: Yes Pain Manageable: Yes Adequeate Hydration: Yes Anesthesia Complications: No Block Receding Appropriately: Yes Patient on Ventilator: No
[2019-01-05] MEDS ORDERED: SODIUM CHLORIDE FLUSH SYRINGE 10 ML IV PRN ×2 (03:00→04:45)
--- NOTE | 2019-01-05 03:18 | Operative Report ---
Operative Report Operative Report: Date: 01/05/2019 Preoperative diagnosis: 1. Intrauterine at 38 weeks 2. Spontaneous rupture of membrane 3. Arrest of descent Postoperative diagnosis: 1. Intrauterine at 38 weeks 2. Spontaneous rupture of membrane 3. Arrest of descent Procedure: Low uterine transverse incision for delivery Surgeon: Jossy Hartmann MD Primary Products Inspectors: [] Anesthesia: Epidural Anesthesiologist: Dr. Brown Estimated blood loss: 800 mL Urine out: 300 mL Findings: Live born female . Weight 5 lbs. 8 oz. Apgars 8 at 1 minute and 8 at 5 minutes. Uterus grossly normal, tubes grossly normal, ovaries grossly normal. Procedure: After risk, benefits, complications, consequences and alternatives for this procedure were discussed with patient and consents were reviewed and signed, she was taken to the OR where epidural anesthesia was bolused. She was then placed in the left lateral tilt position, and prepped and draped in the usual sterile fashion. Timeout was performed, and an appropriate level of anesthesia was noted, a Pfannenstiel incision was made and extended to the fascia which was incised and extended in the lateral directions. The overlying fascia was sharply dissected away from the underlying rectus muscles in the superior and inferior directions. The midline was entered bluntly. The vesicouterine fold was incised and with blunt dissection the bladder flap was created. A transverse incision was made in the lower uterine segment and extended in superiolateral direction with finger fractionation. Clear fluid was noted. The infant was delivered from cephalic OP position. Mouth and nose were bulb suctioned. Spontaneous cry and excellent tone were noted. Cord was doubly clamped and cut. The infant was given to /resuscitation team present. The placenta was manually extracted. The uterus was then exteriorized and cleared of any further products of conception or placental tissue. The incision was reapproximated using 0 Vicryl in a running interlocking stitch. Grossly normal uterus, tubes and ovaries were noted. Once hemostasis was noted, the uterus was allowed back into the pelvic cavity. The pelvis was irrigated with warm normal saline. Again hemostasis was noted . Tisseel applied for further hemostasis. Interceed was then placed to prevent adhesions. Then attention was turned to the rectus muscles. The rectus muscles reapproximated using 0 Vicryl in a simple interrupted stitch x 2. Once hemostasis was noted, the fascia was reapproximated using 0 Vicryl running stitch fashion. Once hemostasis was noted skin incision was reapproximated using 4-0 Vicryl on a Castro needle in a subcuticular manner. Counts were correct 3. Patient tolerated procedure well state recovery room in stable condition.
[2019-01-05] MEDS ORDERED: MYLICON PO PRN (04:45)
[2019-01-05] MEDS ORDERED: TUCKS PAD TP PRN (04:45)
[2019-01-05] MEDS ORDERED: MILK OF MAGNESIA PO PRN (04:45)
[2019-01-05] MEDS ORDERED: LANSINOH TP PRN (04:45)
[2019-01-05] MEDS ORDERED: D5LR 1,000 ML IV SCH (04:45)
[2019-01-05] MEDS ORDERED: TYLENOL PO PRN (04:45)
[2019-01-05] MEDS ORDERED: TYLENOL PR PRN (04:45)
[2019-01-05] MEDS: TORADOL IV SCH ×3 (05:13→20:36)
[2019-01-05] MEDS: NORCO 5/325 PO PRN ×4 (08:53→21:39)
[2019-01-05] MEDS: ANCEF/NS 1 GM/50 ML 1 GM/50 ML BAG IV SCH ×2 (09:48→12:56)
[2019-01-05 15:03] LABS: Hematocrit 29.6 % (30.3-42.9); Hemoglobin 9.7 gm/dl (10.1-14.3)
[2019-01-06] MEDS ORDERED: BOOSTRIX IM ONE (06:00)
[2019-01-06] MEDS: TORADOL IV SCH (06:02)
[2019-01-06] MEDS: NORCO 5/325 PO PRN ×3 (10:24→22:07)
--- NOTE | 2019-01-06 13:52 | Progress Note ---
Assessment and Plan - Patient Problems (1) delivery delivered Current Visit: Yes Status: Acute Plan to address problem: Continue C/S pathway orders (2) Single live Current Visit: Yes Status: Acute Subjective - Subjective Date of service: 01/06/19 Principal diagnosis: POD#1 LTCS Interval history: c/o pressure Patient reports: appetite normal, voiding normally, pain well controlled, flatus, ambulating normally Objective - Vital Signs Latest vital signs: Vital Signs Temp Pulse Resp BP 01/06/19 08:30 98.1 F 94 H 18 110/67 01/06/19 06:32 18 01/06/19 06:02 18 01/05/19 23:30 98.7 F 69 18 117/78 01/05/19 22:39 18 01/05/19 21:39 18 01/05/19 21:06 18 01/05/19 20:36 18 01/05/19 16:35 98 F 89 18 116/66 Intake and Output 01/05/19 01/06/19 01/06/19 22:59 06:59 14:59 Intake Total 720 200 320 Output Total 200 Balance 520 200 320 Intake: Oral 720 200 320 Output: Urine 200 Indwelling Catheter 200 Other: Total, Intake Amount 240 200 320 Total, Output Amount 200 # Voids Void 1 - Exam Breasts: Present: normal. Absent: discharge, pain, engorged Lungs: Present: Clear to auscultation, Normal air movement Abdomen: Present: soft, normal bowel sounds. Absent: tenderness Uterus: Present: firm, fundal height below umbilicus. Absent: tenderness Extremities: Present: edema (1+). Absent: tenderness Incision: Present: normal, dry, intact - Labs Labs: Abnormal lab results 01/05/19 Range/Units 14:42 Hgb 9.7 L (10.1-14.3) gm/dl Hct 29.6 L (30.3-42.9) %
[2019-01-07] MEDS: NORCO 5/325 PO PRN ×3 (05:30→17:00)
--- NOTE | 2019-01-07 13:15 | Discharge Summary ---
Providers - Providers Date of Admission: 01/04/19 04:59 Date of discharge: 01/07/19 Attending physician: DANIEL STEWARD 01/05/19 04:45 Consult to Manager Category [CONS] Routine Reason For Exam: Primary care physician: DANIEL STEWARD Hospitalization Condition: Good Hospital course: Pt presents with SROM @ 2300. Pt admitted for IOL. She had failure to descend after pushing for ~3-4 hours, she had LTCS, PP course umremarkable. She now desires d/c home, minimal bleeding Breast soft, NT, no engorgement Abd soft, NT, FF firm, NT below umb Incision C/D/I Exts: trace edema, NT Disposition: - TO HOME OR SELFCARE - Discharge Diagnoses (1) delivery delivered Status: Acute (2) Single live Status: Acute Core Measure Documentation - Palliative Care Palliative Care/ Comfort Measures: Not Applicable - Core Measures Any of the following diagnoses?: none Exam - Constitutional Vitals: Temp Pulse Resp BP Pulse Ox 98.6 F 93 H 20 122/71 98 01/07/19 08:10 01/07/19 08:10 01/07/19 08:10 01/07/19 08:10 01/05/19 01:14 General appearance: Present: no acute distress - Respiratory Respiratory effort: normal - Psychiatric Psychiatric: appropriate mood/affect, intact judgment & insight, memory intact, cooperative - Neurologic Neurologic: CNII-XII intact Plan Follow up with: DANIEL STEWARD MD [Primary Care Provider] - 7 Days Prescriptions: Ibuprofen [Motrin 800 MG tab] 800 mg PO TID PRN #30 tablet PRN Reason: Pain oxyCODONE /ACETAMINOPHEN [Percocet 5/325 mg] 1 - 2 tab PO Q4HR PRN #20 tablet PRN Reason: Pain
--- NOTE | 2019-01-07 13:24 | Discharge Summary ---
Providers - Providers Date of Admission: 01/04/19 04:59 Date of discharge: 01/07/19 Attending physician: DANIEL STEWARD 01/05/19 04:45 Consult to Entrepreneurship Program Director [CONS] Routine Reason For Exam: Primary care physician: DANIEL STEWARD Hospitalization Reason for admission: rupture of membranes Delivery: Procedure: section Episiotomy: none Laceration: none Incision: normal, dry, intact Other procedures: none complications: none Discharge diagnosis: IUP at term delivered baby: female Hospital course: Pt presents with SROM @ 2300. Pt admitted for IOL. She had failure to descend after pushing for ~3-4 hours, she had LTCS, PP course umremarkable. She now vaughn res d/c home, minimal bleeding Breast soft, NT, no engorgement Abd soft, NT, FF firm, NT below umb Incision C/D/I Exts: trace edema, NT Condition at discharge: Good Disposition: DC-01 TO HOME OR SELFCARE - Discharge Diagnoses (1) delivery delivered Status: Acute (2) Single live Status: Acute Plan - Discharge Medications Prescriptions: Ibuprofen [Motrin 800 MG tab] 800 mg PO TID PRN #30 tablet PRN Reason: Pain oxyCODONE /ACETAMINOPHEN [Percocet 5/325 mg] 1 - 2 tab PO Q4HR PRN #20 tablet PRN Reason: Pain - Provider Discharge Summary Activity: routine, no sex for 6 weeks, no heavy lifting 4 weeks, no strenuous exercise Diet: routine Instructions: routine Additional instructions: [] Smoking cessation referral if applicable(refer to patient education folder for contact #) [] Refer to [facility] Booklet Call your doctor immediately for: * Fever > 100.5 * Heavy vaginal bleeding ( >1 pad per hour) * Severe persistent headache * Shortness of breath * Reddened, hot, painful area to leg or breast * Drainage or odor from incision. * Keep incision clean and dry at all times and follow doctor's instructions regarding bathing/showering - Follow up plan Follow up: DANIEL STEWARD MD [Primary Care Provider] - 01/12/19 2:30 pm ([place])
[2019-01-07 16:55] VITALS: BP 126/72
== END 2019-01-07 17:30 | disposition home or self-care (01) | DRG 787 ==
LOC: TRG 23:55 → LD 01-04 04:59 → OB 01-05 04:08
PROVIDERS: ADMIT Obstetrics & Gynecology; ATTEND Obstetrics & Gynecology
PROC: 10H07YZ Insertion of Other Device into Products of Conception, Via Natural or Artificial Opening (ICD-10-PCS; 2019-01-04)
PROC: 10D00Z1 Extraction of Products of Conception, Low, Open Approach (ICD-10-PCS; principal; 2019-01-05)
PROC: 3E0334Z Introduction of Serum, Toxoid and Vaccine into Peripheral Vein, Percutaneous Approach (ICD-10-PCS; 2019-01-05)
DX: O99.62 Diseases of the digestive system complicating childbirth (principal); D62 Acute posthemorrhagic anemia; K21.9 Gastro-esophageal reflux disease without esophagitis; O99.214 Obesity complicating childbirth; E66.9 Obesity, unspecified; O62.1 Secondary uterine inertia; Z3A.38 38 weeks gestation of pregnancy; Z37.0 Single live birth; R03.0 Elevated blood-pressure reading, without diagnosis of hypertension; O99.02 Anemia complicating childbirth
CPT/HCPCS: 36415; 81001; 82565; 83615; 84450; 84460; 84550; 85014; 85018; 85027; 85461; 86592; 86850; 86900; 86901; 87086; G0378; C1765; J0595; J0690; J1885; J2210; J2590; J2765; J2790; J3010; J7120

== ENCOUNTER 2019-01-23 11:01 | Outpatient (CLI) | payer BC, MEDICAID | END 2019-01-23 11:02 | disposition home or self-care (01) | LOC: WOUND 11:01 | PROVIDERS: ATTEND Surgery | DX: T81.89XA Other complications of procedures, not elsewhere classified, initial encounter (principal); Y83.8 Other surgical procedures as the cause of abnormal reaction of the patient, or of later complication, without mention of misadventure at the time of the procedure; Y92.89 Other specified places as the place of occurrence of the external cause | CPT/HCPCS: 99214; G0463 ==

== ENCOUNTER 2021-12-03 12:07 | Outpatient (CLI) | payer BC, MEDICAID ==
[2021-12-03 13:30] VITALS: BP 113/77
--- NOTE | 2021-12-03 13:50 | Ultrasound Report ---
US OB limited INDICATION: NST, MARLA. TECHNIQUE: Transabdominal. COMPARISON: None available. FINDINGS: There is a single intrauterine . Heart Rate: 143 beats per minute. Position: cephalic. Amniotic Fluid Volume: normal Amniotic Fluid Index (MARLA) in cm (if calculated): 18.3. IMPRESSION: 1. Amniotic fluid is normal. Signer Name: Abbe Saba MD Signed: 12/03/2021 1:46 PM Workstation Name: [id number]
== END 2021-12-03 13:44 | disposition home or self-care (01) ==
LOC: TRG 12:07 → APU 12:08 → TRG 13:44
PROVIDERS: ATTEND Student in an Organized Health Care Education/Training Program
DX: Z34.83 Encounter for supervision of other normal pregnancy, third trimester (principal); Z3A.37 37 weeks gestation of pregnancy
CPT/HCPCS: 59025; 76815

== ENCOUNTER 2021-12-10 09:15 | Outpatient (CLI) | payer BC, MEDICAID ==
[2021-12-10 11:54] VITALS: BP 127/65
--- NOTE | 2021-12-10 12:00 | Ultrasound Report ---
ULTRASOUND OBSTETRIC LIMITED INDICATION / CLINICAL INFORMATION: c/o leaking fluid, MARLA. Rupture of membranes. TECHNIQUE: Transabdominal ultrasound imaging. COMPARISON: 12/03/2021 FINDINGS: HEART RATE (beats per minute): 131 AMNIOTIC FLUID INDEX (cm) = 11.7 PRESENTATION: Cephalic. ADDITIONAL FINDINGS: None. IMPRESSION: MARLA measures 11.7 cm as opposed to 18.3 cm on 12/03/2021 exam. Signer Name: Roberto Lawrence Jr, MD Signed: 12/10/2021 11:56 AM Workstation Name: [id number]
== END 2021-12-10 12:08 | disposition home or self-care (01) ==
LOC: TRG 09:15 → APU 09:17 → TRG 12:08
PROVIDERS: ATTEND Student in an Organized Health Care Education/Training Program
DX: O42.92 Full-term premature rupture of membranes, unspecified as to length of time between rupture and onset of labor (principal); Z3A.37 37 weeks gestation of pregnancy
CPT/HCPCS: 36415; 59025; 76815; 84112